=== PATIENT | female | born 1975 | race American Indian/Alaskan Native ===

== ENCOUNTER 2021-06-24 09:53 | Emergency (ER) | payer OTHER ==
[2021-06-24 10:05] VITALS: BP 119/69
--- NOTE | 2021-06-24 11:12 | XRay Report ---
RIGHT HAND 3 VIEWS INDICATION: cut by glass 3 years ago, now swelling. COMPARISON: None. IMPRESSION: No acute osseous abnormality or joint pathology is identified. There is suggestion of a n irregular radiodense foreign body in the palmar soft tissues between metatarsal heads 2 and 3 measu ring 5 x 9 mm which could represent a foreign body such as glass. Please correlate with the image and the patient. Signer Name: Atilio Latif Jr, MD Signed: 06/24/2021 11:08 AM Workstation Name: [id number]
[2021-06-24] MEDS ORDERED: TETANUS,DIPH,PERTUSS(ACELL) VACCINE 0.5 ML SYRINGE IM ONE (11:29)
[2021-06-24] MEDS ORDERED: LIDOCAINE (2%) 20 MG/1 ML VIAL 20 ML MDV INFILTRATI ONE (11:29)
--- NOTE | 2021-06-24 11:29 | Emergency Department Report ---
ED Extremity Problem HPI - General Chief complaint: Extremity Injury, Upper Stated complaint: GLASS IN RT HAND Time Seen by Provider: 06/24/21 10:45 Source: patient Mode of arrival: Ambulatory Limitations: No Limitations - History of Present Illness Initial comments: Patient is a 46-year-old female presents emergency room with complaints of a possible foreign body in her right palm. Patient states that 3 years ago she broke a vase and had to have a laceration repair to her right palm. She states over the last week or so she began having swelling and feels like there is something inside the hand. She states occasionally she sees a small amount of drainage. She denies any fever, nausea, vomiting, diarrhea, numbness, weakness, chills. No past medical history. No allergies to medications. Patient states that she is unsure of her last tetanus immunization and does not believe she was given one 3 years ago. - Related Data Previous Rx's Medication Instructions Recorded Last Taken Type Mupirocin [Bactroban 2% OINT] 1 applic TP TID #1 tube 06/24/21 Unknown Rx cephALEXin [Keflex] 500 mg PO QID 7 Days #28 cap 06/24/21 Unknown Rx Allergies Allergy/AdvReac Type Severity Reaction Status Date / Time No Known Allergies Allergy Verified 10/24/20 20:22 ED Review of Systems ROS: Stated complaint: GLASS IN RT HAND Other details as noted in HPI Comment: All other systems reviewed and negative ED Past Medical Hx - Past Medical History Previous Medical History?: No - Surgical History Past Surgical History?: Yes Additional Surgical History: right hand surgery - Social History Smoking Status: Never Smoker Substance Use Type: None - Medications Home Medications: Home Medications Medication Instructions Recorded Confirmed Last Taken Type Mupirocin [Bactroban 2% OINT] 1 applic TP TID #1 tube 06/24/21 Unknown Rx cephALEXin [Keflex] 500 mg PO QID 7 Days #28 cap 06/24/21 Unknown Rx ED Physical Exam - General Limitations: No Limitations General appearance: alert, in no apparent distress - Head Head exam: Present: atraumatic, normocephalic - Eye Eye exam: Present: normal appearance - ENT ENT exam: Present: mucous membranes moist - Extremities Exam Extremities exam: Present: other (there is a 2 cm area of edema present to the right palm, there is palpable firmness which could represent foreign body, no drainage, no increased warmth, neurovascularly intact, FROM, no crepitus) - Neurological Exam Neurological exam: Present: alert, oriented X3 - Psychiatric Psychiatric exam: Present: normal affect, normal mood - Skin Skin exam: Present: warm, dry ED Course Vital Signs 06/24/21 10:01 Temperature 98.4 F Pulse Rate 82 Respiratory 18 Rate Blood Pressure 119/69 O2 Sat by Pulse 98 Oximetry - Procedure Description Procedures done: Skin foreign body removal. Consent obtained by patient. Betadine prep, sterile drapes applied, 3 cc of 2% lidocaine without epinephrine used anesthetic, 11 blade used to make a 0.5 cm incision, extended the opening that was already present, hemostats used to car lubricator foreign body with complete removal, no complications, bleeding controlled, patient tolerated well, sterile dressing applied ED Medical Decision Making - Radiology Data Radiology results: report reviewed Ordering Physician: UCHE ESCALONA Date of Service: 06/24/21 Procedure(s): XR hand 3+V RT Accession Number(s): [id number] cc: UCHE ESCALONA Fluoro Time In Minutes: RIGHT HAND 3 VIEWS INDICATION: cut by glass 3 years ago, now swelling. COMPARISON: None. IMPRESSION: No acute osseous abnormality or joint pathology is identified. There is suggestion of an irregular radiodense foreign body in the palmar soft tissues between metatarsal heads 2 and 3 measuring 5 x 9 mm which could represent a foreign body such as glass. Please correlate with the image and the patient. Signer Name: Atilio Latif Jr, MD Signed: 06/24/2021 11:08 AM Workstation Name: [id number] Transcribed By: TTR Dictated By: ATILIO LATIF JR, MD Electronically Authenticated By: ATILIO LATIF JR, MD Signed Date/Time: 06/24/21 110 DD/ 1107 TD/TT: Ordering Physician: UCHE ESCALONA Date of Service: 06/24/21 Procedure(s): XR hand 3+V RT Accession Number(s): [id number] cc: UCHE ESCALONA Fluoro Time In Minutes: XR hand 3+V RT INDICATION: s/p foreign body removal. COMPARISON: Exam done earlier today FINDINGS: There is no residual radiopaque foreign body. Osseous structures appear normal. Signer Name: Tony Miranda MD Signed: 06/24/2021 12:40 PM Workstation Name: [id number] Transcribed By: JEFFERY Dictated By: Tony Miranda MD Electronically Authenticated By: Tony Miranda MD Signed Date/Time: 06/24/21 1240 DD/ 1239 TD/TT: - Medical Decision Making Patient is a 46-year-old female presents emergency room with complaints of a possible foreign body in her right palm. Patient states that 3 years ago she broke a vase and had to have a laceration repair to her right palm. She states over the last week or so she began having swelling and feels like there is something inside the hand. She states occasionally she sees a small amount of drainage. She denies any fever, nausea, vomiting, diarrhea, numbness, weakness, chills. No past medical history. No allergies to medications. Patient states that she is unsure of her last tetanus immunization and does not believe she was given one 3 years ago. Vitals are normal. On exam:there is a 2 cm area of edema present to the right palm, there is palpable firmness which could represent foreign body, no drainage, no increased warmth, neurovascularly intact, FROM, no crepitus. X-ray right hand: No acute osseous abnormality or joint pathology is identified. There is suggestion of an irregular radiodense foreign body in the palmar soft tissues between metatarsal heads 2 and 3 measuring 5 x 9 mm which could represent a foreign body such as glass. Please correlate with the image and the patient. Foreign body removal per procedure note without any complications. repeat XR after foreign body removal: There is no residual radiopaque foreign body. Osseous structures appear normal. Patient given Tdap. Patient given prescription for medications. Advised patient Please use medication as prescribed. Keep area clean, dry, covered. No hot tub, no pool. Follow-up with a primary care doctor. Return to emergency room for any new or worsening symptoms. Critical care attestation.: If time is entered above; I have spent that time in minutes in the direct care of this critically ill patient, excluding procedure time. ED Disposition Clinical Impression: Foreign body (FB) in soft tissue Disposition: HOME / SELF CARE / HOMELESS Is pt being admited?: No Does the pt Need Aspirin: No Condition: Stable Instructions: Hand or Foot Foreign Body, Adult Additional Instructions: Please use medication as prescribed. Keep area clean, dry, covered. No hot tub, no pool. Follow-up with a primary care doctor. Return to emergency room for any new or worsening symptoms. Prescriptions: Mupirocin [Bactroban 2% OINT] 1 applic TP TID #1 tube cephALEXin [Keflex] 500 mg PO QID 7 Days #28 cap Referrals: PRIMARY CARE, [Primary Care Provider] - 2-3 Days Time of Disposition: 13:12 Print Language: MAORI
--- NOTE | 2021-06-24 12:44 | XRay Report ---
XR hand 3+V RT INDICATION: s/p foreign body removal. COMPARISON: Exam done earlier today FINDINGS: There is no residual radiopaque foreign body. Osseous structures appear normal. Signer Name: Tony Miranda MD Signed: 06/24/2021 12:40 PM Workstation Name: [id number]
== END 2021-06-24 13:20 | disposition home or self-care (01) ==
LOC: ED 09:53
DX: S60.551A Superficial foreign body of right hand, initial encounter (principal); M60.241 Foreign body granuloma of soft tissue, not elsewhere classified, right hand; Z18.81 Retained glass fragments; Z98.890 Other specified postprocedural states; X58.XXXA Exposure to other specified factors, initial encounter; Y93.89 Activity, other specified; Y92.89 Other specified places as the place of occurrence of the external cause; Y99.8 Other external cause status
CPT/HCPCS: 90471; 90715; 99283